=== PATIENT | male | born 1980 | race African-American/Black ===

== ENCOUNTER 2016-07-04 15:32 | Outpatient (CLI) | payer OTHER ==
[2016-07-04 16:10] LABS: BILIRUBIN,URINE NEGATIVE (NEGATIVE); BLOOD, URINE NEGATIVE (NEGATIVE); CLARITY/URINE CLEAR (CLEAR); COLOR,URINE YELLOW (YELLOW); GLUCOSE,URINE NEGATIVE (NEGATIVE); KETONES,URINE NEGATIVE (NEGATIVE); LEUKOCYTE ESTERASE ,URINE NEGATIVE (NEGATIVE); NITRITE, URINE NEGATIVE (NEGATIVE); PROTEIN URINE NEGATIVE (NEGATIVE); UROBILINOGEN,URINE 0.2 (0.2-1.0)
[2016-07-04 16:23] LABS: CALCIUM 9.3 mg/dL (8.4-11.0); CREATININE 1.44 mg/dL (0.55-1.30); POTASSIUM 4.4 mmol/L (3.5-5.1)
[2016-07-05 15:36] LABS: CREATININE, URINE 134.5 mg/dL; MICROALBUMIN URINE RANDOM < 3.0 ug/ml (NOT ESTABLISHED); MICROALBUMIN/CREAT RATIO, UR <2.2 MG/G CRE (0.0-30.0)
== END 2016-07-04 20:18 | disposition home or self-care (01) ==
LOC: SLB 15:32
PROVIDERS: ATTEND Family Medicine
DX: R73.03 Prediabetes (principal)
CPT/HCPCS: 36415; 80048; 80061; 81003; 82043; 82570; 83036

== ENCOUNTER 2016-09-07 13:40 | Outpatient (CLI) | payer OTHER | END 2016-09-07 19:45 | disposition home or self-care (01) | LOC: SRD 13:40 | PROVIDERS: ATTEND Urology | DX: F52.4 Premature ejaculation (principal); N13.30 Unspecified hydronephrosis; Q62.39 Other obstructive defects of renal pelvis and ureter | CPT/HCPCS: 76770 ==

== ENCOUNTER 2016-12-06 14:23 | Outpatient (CLI) | payer OTHER ==
[2016-12-06 15:01] LABS: ALBUMIN 4.6 g/dL (3.4-4.8); CREATININE 1.32 mg/dL (0.55-1.30); POTASSIUM 3.9 mmol/L (3.5-5.1); TOTAL BILIRUBIN 1.4 mg/dL (0.0-1.0); TOTAL PROTEIN, SERUM 7.9 g/dL (6.4-8.3)
== END 2016-12-06 20:27 | disposition home or self-care (01) ==
LOC: SLB 14:23
PROVIDERS: ATTEND Family Medicine
DX: I10 Essential (primary) hypertension (principal); R73.03 Prediabetes
CPT/HCPCS: 36415; 80053; 83036

== ENCOUNTER 2018-02-09 08:29 | Outpatient (CLI) | payer OTHER ==
[~2018-02-09] VITALS: Ht 182.9 cm; Wt 90.7 kg
[2018-02-09] MEDS ORDERED: FUROSEMIDE 20 MG/2 ML VIAL IVP ONE (09:00)
== END 2018-02-09 18:46 | disposition home or self-care (01) ==
LOC: SNM 08:29
PROVIDERS: ATTEND Family Medicine
DX: N13.9 Obstructive and reflux uropathy, unspecified (principal); N13.5 Crossing vessel and stricture of ureter without hydronephrosis
CPT/HCPCS: 78708; A9562; J1940

== ENCOUNTER 2018-04-10 15:13 | Outpatient (CLI) | payer OTHER ==
[2018-04-10 15:42] LABS: BILIRUBIN,URINE NEGATIVE (NEGATIVE); BLOOD, URINE NEGATIVE (NEGATIVE); CLARITY/URINE CLEAR (CLEAR); COLOR,URINE YELLOW (YELLOW); GLUCOSE,URINE NEGATIVE (NEGATIVE); KETONES,URINE NEGATIVE (NEGATIVE); LEUKOCYTE ESTERASE ,URINE NEGATIVE (NEGATIVE); NITRITE, URINE NEGATIVE (NEGATIVE); PROTEIN URINE NEGATIVE (NEGATIVE); UROBILINOGEN,URINE 0.2 (0.2-1.0)
[2018-04-10 15:47] LABS: BASOPHILS # (AUTO) 0.1 K/uL (0.0-0.2); BASOPHILS % (AUTO) 0.7 % (0.0-2.0); EOSINOPHILS # (AUTO) 0.1 K/uL (0.0-0.4); EOSINOPHILS % (AUTO) 1.2 % (0.0-4.0); HEMATOCRIT 45.8 % (36-54); HEMOGLOBIN 15.1 g/dL (14.0-18.0); LYMPHOCYTES # (AUTO) 2.1 K/uL (1.0-5.5); MEAN CORPUSCULAR HEMOGLOBIN 27 pg (27-31); MEAN CORPUSCULAR HGB CONC 33 % (32-36); MEAN CORPUSCULAR VOLUME 81 fL (79.0-98.0); MONOCYTES # (AUTO) 0.5 K/uL (0.0-1.0); MONOCYTES % (AUTO) 7.5 % (1.7-9.3); NEUTROPHILS # (AUTO) 4.4 K/uL (1.8-7.7); NEUTROPHILS % (AUTO) 61.6 % (40.0-70.0); PLATELET COUNT (AUTO) 263 K/uL (130-430); RED BLOOD CELL COUNT(AUTO) 5.64 MIL/uL (4.2-6.2); WHITE BLOOD COUNT (AUTO) 7.2 K/uL (4.8-10.8)
[2018-04-10 16:23] LABS: ALBUMIN 4.6 g/dL (3.4-4.8); CALCIUM 9.5 mg/dL (8.4-11.0); CREATININE 1.55 mg/dL (0.55-1.30); FREE T4 (FREE THYROXINE) 0.5 ng/dL (0.6-1.6); POTASSIUM 4.7 mmol/L (3.5-5.1); THYROID STIMULATING HORMONE 1.77 uIu/mL (0.34-4.82); TOTAL BILIRUBIN 1.3 mg/dL (0.0-1.0)
== END 2018-04-10 20:46 | disposition home or self-care (01) ==
LOC: SLB 15:13
PROVIDERS: ATTEND Family Medicine
DX: Z00.00 Encounter for general adult medical examination without abnormal findings (principal); Z83.3 Family history of diabetes mellitus
CPT/HCPCS: 36415; 80053; 80061; 81003; 83036; 84439; 84443-TC; 85025

== ENCOUNTER 2018-11-13 10:09 | Outpatient (CLI) | payer OTHER ==
[2018-11-13 11:14] LABS: ALBUMIN 4.5 g/dL (3.4-4.8); CALCIUM 9.6 mg/dL (8.4-11.0); CREATININE 1.64 mg/dL (0.55-1.30); POTASSIUM 4.5 mmol/L (3.5-5.1); TOTAL BILIRUBIN 0.8 mg/dL (0.0-1.0)
== END 2018-11-13 14:47 | disposition home or self-care (01) ==
LOC: SLB 10:09
PROVIDERS: ATTEND Family Medicine
DX: R73.02 Impaired glucose tolerance (oral) (principal)
CPT/HCPCS: 36415; 80053; 83036

== ENCOUNTER 2019-02-12 16:20 | Outpatient (CLI) | payer OTHER ==
[2019-02-12 17:13] LABS: FREE T4 (FREE THYROXINE) 0.9 ng/dl (0.8-1.5); THYROID STIMULATING HORMONE 2.47 uIu/mL (0.36-3.74)
[2019-02-13 08:09] LABS: TRIIODOTHYRONINE, FREE 3.6 pg/mL (2.0-4.4)
[2019-02-14 07:18] LABS: HEMOGLOBIN A1C 6.5 % (4.8-5.6)
== END 2019-02-12 21:14 | disposition home or self-care (01) ==
LOC: SLB 16:20
PROVIDERS: ATTEND Family Medicine
DX: R73.02 Impaired glucose tolerance (oral) (principal); I10 Essential (primary) hypertension
CPT/HCPCS: 36415; 83036; 84439; 84443-TC; 84480; 84481

== ENCOUNTER → 2019-08-20 | Outpatient (CLI) | payer OTHER ==
[2019-08-20 15:48] LABS: BILIRUBIN,URINE NEGATIVE (NEGATIVE); BLOOD, URINE NEGATIVE (NEGATIVE); CLARITY/URINE CLEAR (CLEAR); COLOR,URINE YELLOW (YELLOW); GLUCOSE,URINE NEGATIVE (NEGATIVE); KETONES,URINE NEGATIVE (NEGATIVE); LEUKOCYTE ESTERASE ,URINE NEGATIVE (NEGATIVE); NITRITE, URINE NEGATIVE (NEGATIVE); PROTEIN URINE NEGATIVE (NEGATIVE); UROBILINOGEN,URINE 0.2 (0.2-1.0)
[2019-08-20 16:07] LABS: ALBUMIN 4.5 g/dL (3.4-4.8); CALCIUM 8.8 mg/dL (8.4-11.0); CREATININE 1.97 mg/dL (0.55-1.30); POTASSIUM 4.6 mmol/L (3.5-5.1); TOTAL BILIRUBIN 0.9 mg/dL (0.0-1.0)
== END | disposition home or self-care (01) ==
LOC: SLB 15:19
PROVIDERS: ATTEND Family Medicine
DX: E11.9 Type 2 diabetes mellitus without complications (principal); I10 Essential (primary) hypertension
CPT/HCPCS: 36415; 80053; 80061; 81003; 82043; 82570; 83036

== ENCOUNTER 2020-01-02 14:38 | Outpatient (CLI) | payer OTHER ==
[2020-01-02 16:30] LABS: BILIRUBIN,URINE NEGATIVE (NEGATIVE); BLOOD, URINE NEGATIVE (NEGATIVE); CLARITY/URINE CLEAR (CLEAR); COLOR,URINE YELLOW (YELLOW); GLUCOSE,URINE NEGATIVE (NEGATIVE); KETONES,URINE NEGATIVE (NEGATIVE); LEUKOCYTE ESTERASE ,URINE NEGATIVE (NEGATIVE); NITRITE, URINE NEGATIVE (NEGATIVE); PROTEIN URINE NEGATIVE (NEGATIVE); UROBILINOGEN,URINE 0.2 (0.2-1.0)
[2020-01-02 17:18] LABS: CALCIUM 9.2 mg/dL (8.4-11.0); CREATININE 1.78 mg/dL (0.55-1.30); POTASSIUM 4.1 mmol/L (3.5-5.1)
== END 2020-01-02 20:37 | disposition home or self-care (01) ==
LOC: SLB 14:38
PROVIDERS: ATTEND Family Medicine
DX: R73.03 Prediabetes (principal)
CPT/HCPCS: 36415; 80048; 80061; 81003; 82043; 82570; 83036

== ENCOUNTER 2020-02-07 07:32 | Outpatient (CLI) | payer OTHER ==
[2020-02-07 08:09] LABS: BASOPHILS # (AUTO) 0.1 K/uL (0.0-0.2); BASOPHILS % (AUTO) 0.6 % (0.0-2.0); EOSINOPHILS # (AUTO) 0.1 K/uL (0.0-0.4); EOSINOPHILS % (AUTO) 1.2 % (0.0-4.0); HEMOGLOBIN 14.9 g/dL (14.0-18.0); LYMPHOCYTES # (AUTO) 1.5 K/uL (1.0-5.5); LYMPHOCYTES % (AUTO) 17.7 % (20.5-51.5); MEAN CORPUSCULAR HEMOGLOBIN 28 pg (27-31); MEAN CORPUSCULAR HGB CONC 33 % (32-36); MEAN CORPUSCULAR VOLUME 83 fL (79.0-98.0); MONOCYTES # (AUTO) 0.7 K/uL (0.0-1.0); MONOCYTES % (AUTO) 8.6 % (1.7-9.3); NEUTROPHILS # (AUTO) 6.1 K/uL (1.8-7.7); NEUTROPHILS % (AUTO) 71.9 % (40.0-70.0); PLATELET COUNT (AUTO) 237 K/uL (130-430); RED BLOOD CELL COUNT(AUTO) 5.41 MIL/uL (4.2-6.2); RED CELL DISTRIBUTION WIDTH 13.8 % (9.0-15.0); WHITE BLOOD COUNT (AUTO) 8.4 K/uL (4.8-10.8)
[2020-02-07 08:42] LABS: FREE T4 (FREE THYROXINE) 1.1 ng/dl (0.8-1.5); THYROID STIMULATING HORMONE 2.44 uIu/mL (0.36-3.74)
[2020-02-09 14:18] LABS: HEMOGLOBIN A1C 6.2 % (4.8-5.6); TRIIODOTHYRONINE, FREE 4.5 pg/mL (2.0-4.4)
== END 2020-02-07 20:00 | disposition home or self-care (01) ==
LOC: SLB 07:32
PROVIDERS: ATTEND Family Medicine
DX: R73.02 Impaired glucose tolerance (oral) (principal); I10 Essential (primary) hypertension
CPT/HCPCS: 36415; 83036; 84439; 84443-TC; 84480; 84481; 85025

== ENCOUNTER 2020-02-20 10:41 | Emergency (ER) | payer OTHER, SELFPAY ==
[~2020-02-20] VITALS: Ht 177.8 cm; Wt 93.4 kg
[2020-02-20 10:41] VITALS: BP_SYST 144
--- NOTE | 2020-02-20 10:41 | NUR ---
Patient to ER bed 3 to gown for evaluation. Side rails up.
--- NOTE | 2020-02-20 10:41 | NUR ---
Pt came to ER after he was exposed to COVID positive mother. 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 Pt resting in [facility] at this time, VSS, cooperative, awaiting
--- NOTE | 2020-02-20 10:50 | NUR ---
SERAFIN Loyola at bedside examining patient.
[2020-02-20 11:10] VITALS: BP_SYST 144
--- NOTE | 2020-02-20 11:10 | NUR ---
Patient given written and verbal discharge instructions and verbalizes understanding. ER MD discussed with patient the results and treatment provided. Patient in stable condition. ID arm band removed. Patient educated on pain management and to follow up with PMD. Pain Scale 0/10. Opportunity for questions provided and answered. Medication side effect fact sheet provided.
--- NOTE | 2020-02-21 15:07 | NUR ---
Patient was called by Selphee, to inform him about his COVID-19 "Detected" result (PCR). The call turn into Voice mail immediately. Also, phone number to contact patient is . Addendum: 02/21/20 at 1520 by Patricia MARTÍNEZ Patient was called by Selphee and notified his "Detected" Covid-19 result and instructed to follow the provided Home Isolation Instructions. Patient verbalizes understanding.
== END 2020-02-20 11:10 | disposition home or self-care (01) ==
LOC: SED 10:41
DX: R05 Cough (principal); Z20.828 Contact with and (suspected) exposure to other viral communicable diseases; I10 Essential (primary) hypertension
CPT/HCPCS: 99283; C9803; U0003

== ENCOUNTER 2022-01-31 11:20 | Emergency (ER) | payer OTHER ==
[~2022-01-31] VITALS: Ht 175.3 cm; Wt 97.5 kg
[2022-01-31 11:31] VITALS: BP_SYST 142
--- NOTE | 2022-01-31 11:34 | NUR ---
Triaged pt and pt c/o left ankle pain x2 weeks. states he stepped wrong. No trauma. Skin is intact. NKA. No known medical conditions. VSS. No chest pain and no sob. Denies n/v. Bed in lowest posiiton.
--- NOTE | 2022-01-31 12:00 | NUR ---
SERAFIN Yao at bedside examining patient.
[2022-01-31] MEDS ORDERED: IBUP-1969 PO (13:52)
--- NOTE | 2022-01-31 15:21 | NUR ---
Patient given written and verbal discharge instructions and verbalizes understanding. ER MD discussed with patient the results and treatment provided. Patient in stable condition. ID arm band removed. Rx of Motrin given. Patient educated on pain management and to follow up with PMD. Pain Scale 0/10. Opportunity for questions provided and answered. Medication side effect fact sheet provided.
[2022-01-31 15:22] VITALS: BP_SYST 145
== END 2022-01-31 15:22 | disposition home or self-care (01) ==
LOC: SED 11:20
DX: S93.422A Sprain of deltoid ligament of left ankle, initial encounter (principal); I10 Essential (primary) hypertension; Z79.899 Other long term (current) drug therapy; X50.0XXA Overexertion from strenuous movement or load, initial encounter; Y93.02 Activity, running; Y92.89 Other specified places as the place of occurrence of the external cause; Y99.8 Other external cause status
CPT/HCPCS: 73700-TC; 76376; 99284